=== PATIENT | female | born 1980 | race Caucasian/White ===

== ENCOUNTER 2021-02-12 15:11 | Emergency (ER) | payer OTHER ==
[~2021-02-12] VITALS: Ht 160 cm; Wt 80.3 kg
[2021-02-12 15:25] VITALS: BP_SYST 154
--- NOTE | 2021-02-12 15:25 | NUR ---
PT TO BED 8 FOR EVALUATION.
--- NOTE | 2021-02-12 15:30 | NUR ---
PT AAO AND AMBULATORY REPORTING HEAVY VAGINAL BLEEDING SINCE 10AM. PT REPORTS SHE IS GOING THROUGH A PAD AN HOUR WITH CLOTS PRESENT. PT REPORTS SHE HAD A STILL THIS PAST NOVEMBER AND HAD A D & C. SHE REPORTS TO HAVE HAD A BLOOD TRANSFUSION RECENTLY AND THAT THERE IS A CYST PRESENT IN HER UTERUS. PT HAS HISTORY OF HTN, ENDOMETRIOSIS, AND THAT SHE HAD HER RIGHT FALLOPIAN TUBE REMOVED. PT REPORTS CRAMPING PAIN 4/10 ON PAIN SCALE.
--- NOTE | 2021-02-12 15:45 | NUR ---
DR. SHARMA AT BEDSIDE TO ASSESS.
--- NOTE | 2021-02-12 16:17 | NUR ---
Blood collected and sent to lab.
--- NOTE | 2021-02-12 16:17 | NUR ---
# 20 gauge angiocath placed to RHand. Use of asceptic technique. Opsite placed over site. Blood return noted. Blood for lab drawn from site. Flushed with 10 cc of normal saline. No evidence of infiltration noted. Patient tolerated well.
[2021-02-12 16:40] LABS: HEMATOCRIT 38.3 % (36-48); HEMOGLOBIN 12.7 g/dL (12.0-16.0); MEAN CORPUSCULAR HEMOGLOBIN 28 pg (27-31); MEAN CORPUSCULAR HGB CONC 33 % (32-36); MEAN CORPUSCULAR VOLUME 85 fL (79.0-98.0); PLATELET COUNT (AUTO) 250 K/uL (130-430); RED BLOOD CELL COUNT(AUTO) 4.51 MIL/uL (4.2-6.2); RED CELL DISTRIBUTION WIDTH 14.2 % (9.0-15.0); WHITE BLOOD COUNT (AUTO) 8.8 K/uL (4.8-10.8)
[2021-02-12 16:45] LABS: CALCIUM 8.5 mg/dL (8.4-11.0); CREATININE 0.74 mg/dL (0.55-1.30); POTASSIUM 3.5 mmol/L (3.5-5.1)
[2021-02-12 17:04] LABS: ALBUMIN 3.8 g/dL (3.4-4.8); TOTAL BILIRUBIN 0.1 mg/dL (0.0-1.0)
--- NOTE | 2021-02-12 17:13 | NUR ---
Patient transported to radiology via wheelchair, accompanied by tech.
--- NOTE | 2021-02-12 17:49 | NUR ---
Pt back from CT resting in ravon with side rails up. Addendum: 02/12/21 at 1749 by PATEL Pt back from ultrasound. Resting in gurney with side rails up.
[2021-02-12] MEDS ORDERED: MEDR10TA3 PO (18:25)
[2021-02-12] MEDS ORDERED: HYDR-3917 PO (18:36)
[2021-02-12 18:59] VITALS: BP_SYST 154
--- NOTE | 2021-02-12 19:00 | NUR ---
Patient given written and verbal discharge instructions and verbalizes understanding. ER MD discussed with patient the results and treatment provided. Patient in stable condition. ID arm band removed. IV catheter removed intact and dressing applied, no active bleeding. Rx of provera given. Patient educated on pain management and to follow up with PMD. Pain Scale 0. Opportunity for questions provided and answered. Medication side effect fact sheet provided.
== END 2021-02-12 19:00 | disposition home or self-care (01) ==
LOC: SED 15:11
DX: N92.0 Excessive and frequent menstruation with regular cycle (principal); O72.1 Other immediate postpartum hemorrhage; I15.9 Secondary hypertension, unspecified; Z88.0 Allergy status to penicillin; Z79.899 Other long term (current) drug therapy
CPT/HCPCS: 36415; 76830-TC; 76857; 80053; 81025; 83051; 84702; 85014; 85048; 85049-TC; 85730-TC; 86886; 86900; 86901; 99284